=== PATIENT | female | born 1965 | race Caucasian/White ===

== ENCOUNTER 2019-04-07 14:44 | Emergency (ER) | payer OTHER ==
[~2019-04-07] VITALS: Ht 162.6 cm; Wt 80.7 kg
[2019-04-07] MEDS ORDERED: KETOROLAC 30 MG/ML VIAL. ONE (15:08)
--- NOTE | 2019-04-07 15:09 | PHYS DOC ---
Past History Past Medical History: Migraines Past Surgical History: Appendectomy, Hysterectomy Additional Past Surgical Histo: Bilateral knee Smoking: Non-smoker Alcohol Use: Occasionally Drug Use: None Adult General Chief Complaint Chief Complaint: ABDOMINAL PAIN HPI HPI Patient is a 54-year-old female who presents with abdominal pain. Patient endorses left lower quadrant abdominal pain since Saturday night she describes as sharp, constant, radiates to the back. Associated symptoms: nausea. Patient denies fever, chills, dysuria, hematuria, vomiting, or diarrhea. Aggravating factors: Worse with walking, bearing down, the deep inspirations. Patient states that she had a similar pain last year, suspected kidney infection, but tests were normal and pain resolved after a few weeks. Patient reports that her last colonoscopy was "normal". Review of Systems Review of Systems Constitutional: Denies fever or chills Eyes: Denies redness or eye pain HENT: Denies nasal congestion or sore throat Respiratory: Denies cough or shortness of breath Cardiovascular: Denies chest pain or palpitations GI: Reports left lower quadrant abdominal pain and nausea; denies vomiting : Denies dysuria or hematuria Musculoskeletal: Reports left lower back pain. denies midline tenderness. Integument: Denies rash or skin lesions Neurologic: Denies headache, focal weakness or sensory changes Complete systems were reviewed and found to be within normal limits, except as documented in this note. Allergies Allergies Allergies Coded Allergies Type Severity Reaction Last Updated Verified acetaminophen Allergy Unknown 04/07/19 Yes ampicillin Allergy Unknown Rash 04/07/19 Yes propoxyphene Allergy Unknown 04/07/19 Yes Physical Exam Physical Exam Constitutional: Well developed, well nourished, uncomfortable, non-toxic appearance HENT: Normocephalic, atraumatic, oropharynx moist Eyes: Conjunctiva normal, no discharge Neck: Normal range of motion, no tenderness, supple Cardiovascular: Heart rate normal, regular rhythm Lungs & Thorax: Bilateral breath sounds clear to auscultation, no wheezing Abdomen: Soft, left lower quadrant and moderately tender to palpation, guarding noted, negative Elizondo's, negative McBurney's. Skin: Warm, dry, no erythema, no rash Back: No tenderness, mild left CVA tenderness to palpation. Extremities: No tenderness, ROM intact, no edema Neurologic: Alert and oriented X 3, no focal deficits noted Psychologic: Affect normal, judgement normal EKG EKG [] Radiology/Procedures Radiology/Procedures PROCEDURE: CT ABDOMEN PELVIS WO CONTRAST Study: CT abdomen and pelvis without contrast Indication: Left flank pain and left lower quadrant pain. Comparison: None. Technique: Helical CT imaging performed of the abdomen and pelvis without the use of intravenous contrast. Sagittal and coronal reformats were obtained. One or more of the following individualized dose reduction techniques were utilized for this examination: 1. Automated exposure control 2. Adjustment of the mA and/or kV according to patient size 3. Use of iterative reconstruction technique. Findings: Apparent smooth nodules at the right lung base, images 10 and 12 series 2, are fat density and benign. Tiny focus of low attenuation at the periphery of the lower right hepatic lobe on image 49 series 2 is not suspicious and could represent a cyst or hemangioma. Unremarkable gallbladder, pancreas, spleen and adrenal glands. Unremarkable kidneys. No hydroureteronephrosis. Unremarkable urinary bladder. The uterus is absent. No adnexal mass. Colonic diverticulosis involving the transverse colon through the sigmoid colon complicated by sigmoid diverticulitis. Inflammatory changes mainly along the left pelvic sidewall and a small amount of complex fluid within the deep pelvis but without an abscess or uncontained perforation. Nonobstructed small bowel. Mild areas of reactive small bowel wall thickening in the setting of diverticulitis. Unremarkable stomach. No acute osseous abnormality. Relatively mild scattered degenerative changes. Impression: Colonic diverticulosis complicated by sigmoid diverticulitis. Inflammatory changes and a small amount of complex free fluid centered along the left pelvic sidewall and into the deep pelvis but without an abscess or evidence for an uncontained perforation. No bowel obstruction. Electronically signed by: TYLER ASH MD (04/07/2019 3:42 PM) [facility] Course & Med Decision Making Course & Med Decision Making Pertinent Labs and Imaging studies reviewed. (See chart for details) Patient presents with left lower quadrant pain that radiates back and nausea since Saturday. She denies changes in bowel or bladder habits, but has a history of multiple abdominal surgeries. Symptomatic treatment provided. IVF hydration given. Labs obtained and posted to chart. CT Abd/pelvis remarkable for colonic diverticulosis complicated by sigmoid diverticulitis, and area of complex free fluid along pelvic wall. Will start on Flagyl and Rocephin. Discussed with Dr. Boston (hospitalist) regarding case including labs and imaging studies. Agreed for admission but requests transfer to [facility] due to possible need for interventional radiology and/or general surgery. 1830: Patient still endorses abdominal pain, will give fentanyl for pain. Discussed findings and plan with patient and family, who acknowledge understanding and agreement. Dragon Disclaimer Dragon Disclaimer This electronic medical record was generated, in whole or in part, using a voice recognition dictation system. Departure Departure: Impression: Primary Impression: Diverticulitis of intestine with perforation without abscess Disposition: 05 TRANSFER OTHER ([facility]- Dr. Boston accepting) Condition: STABLE Referrals: ROCKY KNAPP DO (PCP) Problem Qualifiers Primary Impression: Diverticulitis of intestine with perforation without abscess Diverticulitis site: large intestine Diverticulitis bleeding: without bleeding Qualified Codes: K57.20 - Diverticulitis of large intestine with perforation and abscess without bleeding NASEEM SAENZ DO Apr 07, 2019 15:09
[2019-04-07] MEDS ORDERED: METOCLOPRAMIDE HCL 10 MG/2 ML VIAL. IVP ONE (15:15)
[2019-04-07] MEDS ORDERED: KETOROLAC 15 MG/ML VIAL. IVP ONE (15:15)
[2019-04-07] MEDS ORDERED: IV NORMAL SALINE 1,000ML 1,000 ML IV ONE (15:15)
[2019-04-07 15:41] LABS: BASO # 0.1 x10^3/uL (0.0-0.2); BASO % 1 % (0-3); EOS # 0.1 x10^3/uL (0.0-0.7); EOS % 1 % (0-3); HEMOGLOBIN 14.7 g/dL (12.0-15.5); LYMPH # 1.4 x10^3/uL (1.0-4.8); LYMPH % 14 % (24-48); MEAN CORPUSCULAR HEMOGLOBIN 32 pg (25-35); MEAN CORPUSCULAR HGB CONC 33 g/dL (31-37); MEAN CORPUSCULAR VOLUME 95 fL (79-100); MONO # 0.7 x10^3/uL (0.0-1.1); MONO % 7 % (0-9); NEUT # 7.8 x10^3uL (1.8-7.7); NEUT % 77 % (31-73); PLATELET COUNT 224 x10^3/uL (140-400); RED BLOOD COUNT 4.66 x10^6/uL (3.50-5.40); RED CELL DISTRIBUTION WIDTH 13.7 % (11.5-14.5); WHITE BLOOD COUNT 10.1 x10^3/uL (4.0-11.0)
--- NOTE | 2019-04-07 15:45 | RAD ---
Study: CT abdomen and pelvis without contrast Indication: Left flank pain and left lower quadrant pain. Comparison: None. Technique: Helical CT imaging performed of the abdomen and pelvis without the use of intravenous contrast. Sagittal and coronal reformats were obtained. One or more of the following individualized dose reduction techniques were utilized for this examination: 1. Automated exposure control 2. Adjustment of the mA and/or kV according to patient size 3. Use of iterative reconstruction technique. Findings: Apparent smooth nodules at the right lung base, images 10 and 12 series 2, are fat density and benign. Tiny focus of low attenuation at the periphery of the lower right hepatic lobe on image 49 series 2 is not suspicious and could represent a cyst or hemangioma. Unremarkable gallbladder, pancreas, spleen and adrenal glands. Unremarkable kidneys. No hydroureteronephrosis. Unremarkable urinary bladder. The uterus is absent. No adnexal mass. Colonic diverticulosis involving the transverse colon through the sigmoid colon complicated by sigmoid diverticulitis. Inflammatory changes mainly along the left pelvic sidewall and a small amount of complex fluid within the deep pelvis but without an abscess or uncontained perforation. Nonobstructed small bowel. Mild areas of reactive small bowel wall thickening in the setting of diverticulitis. Unremarkable stomach. No acute osseous abnormality. Relatively mild scattered degenerative changes. Impression: Colonic diverticulosis complicated by sigmoid diverticulitis. Inflammatory changes and a small amount of complex free fluid centered along the left pelvic sidewall and into the deep pelvis but without an abscess or evidence for an uncontained perforation. No bowel obstruction. Electronically signed by: TYLER ASH MD (04/07/2019 3:42 PM) [facility]
[2019-04-07 15:52] LABS: CALCIUM 8.8 mg/dL (8.5-10.1); CREATININE 0.6 mg/dL (0.6-1.0); POTASSIUM 3.6 mmol/L (3.5-5.1)
[2019-04-07] MEDS ORDERED: IV NORMAL SALINE 50ML 50 ML ONE (15:57)
[2019-04-07] MEDS ORDERED: cefTRIAXone SODIUM 1 GM VIAL ONE (15:57)
[2019-04-07 16:16] LABS: ALBUMIN/GLOBULIN RATIO 1.1 (1.0-1.7); MAGNESIUM 2.4 mg/dL (1.8-2.4); TOTAL BILIRUBIN 0.3 mg/dL (0.2-1.0); TOTAL PROTEIN 7.8 g/dL (6.4-8.2)
[2019-04-07 18:20] LABS: COLOR,URINE STRAW
[2019-04-07 18:21] LABS: BACTERIA,URINE 0 /HPF (0-FEW); BILIRUBIN,URINE NEG (NEG); CLARITY,URINE CLEAR; GLUCOSE,URINE NEG (NEG); NITRITE,URINE NEG (NEG); RBC,URINE 0 /HPF (0-2); SQUAMOUS EPITHELIAL CELL,UR OCC /LPF; UROBILINOGEN,URINE 0.2 mg/dL (0.2 mg/dL); WBC,URINE OCC /HPF (0-4)
[2019-04-07 21:55] VITALS: BP 155/86
== END 2019-04-07 23:39 | disposition short-term general hospital (02) ==
LOC: ER 14:54
DX: K57.20 Diverticulitis of large intestine with perforation and abscess without bleeding (principal); G43.909 Migraine, unspecified, not intractable, without status migrainosus; Z90.89 Acquired absence of other organs; Z90.710 Acquired absence of both cervix and uterus; Z88.6 Allergy status to analgesic agent; Z88.0 Allergy status to penicillin; Z88.8 Allergy status to other drugs, medicaments and biological substances
CPT/HCPCS: 36415; 74176; 80053; 81001; 83690; 83735; 85025; 96365; 96367; 96375; 96376; 99285; J0696; J1885; J2765; J3010; J3490; J7030

== ENCOUNTER → 2020-07-22 | Outpatient (CLI) | payer OTHER ==
--- NOTE | 2020-07-22 08:56 | RAD ---
Exam Date: 07/22/2020 8:28 AM XR EXAM OF ANKLE_RIGHT 3VIEWS, XR RT TIBIA+FIBULA , XR FOOT_RIGHT 3 VIEWS Indication: Reason: S/P FALL, PAIN / Spl. Instructions: / History: FINDINGS/ IMPRESSION: There is soft tissue swelling overlying the lateral malleolus. Ankle mortise is intact. There is a no ndisplaced acute longitudinal fracture through the medial aspect of the distal epiphysis of the fifth proximal phalanx with extension to the PIP joint. Soft tissue swelling of the fifth digit is noted. Mild degenerative changes are noted at the first MTP joint. Joint spaces are otherwise maintained. Electronically signed by: Roosevelt Cazares MD (07/22/2020 8:53 AM) [id number]
== END ==
LOC: RAD 08:16
DX: M19.071 Primary osteoarthritis, right ankle and foot (principal); M79.89 Other specified soft tissue disorders
CPT/HCPCS: 73590; 73610; 73630

== ENCOUNTER 2020-09-26 16:17 | Emergency (ER) | payer OTHER ==
[~2020-09-26] VITALS: Ht 162.6 cm; Wt 80.7 kg
[2020-09-26 17:36] LABS: BASO % 0 % (0-3); EOS % 0 % (0-3); HEMATOCRIT 39.8 % (36.0-47.0); HEMOGLOBIN 13.2 g/dL (12.0-15.5); LYMPH # 1.2 x10^3/uL (1.0-4.8); LYMPH % 11 % (24-48); MEAN CORPUSCULAR HEMOGLOBIN 29 pg (25-35); MEAN CORPUSCULAR HGB CONC 33 g/dL (31-37); MEAN CORPUSCULAR VOLUME 87 fL (79-100); MONO # 0.8 x10^3/uL (0.0-1.1); MONO % 7 % (0-9); NEUT # 8.7 x10^3uL (1.8-7.7); NEUT % 81 % (31-73); PLATELET COUNT 233 x10^3/uL (140-400); RED CELL DISTRIBUTION WIDTH 22.7 % (11.5-14.5); WHITE BLOOD COUNT 10.8 x10^3/uL (4.0-11.0)
[2020-09-26 17:46] LABS: BILIRUBIN,URINE NEG (NEG); CLARITY,URINE CLEAR; COLOR,URINE YELLOW; GLUCOSE,URINE NEG (NEG); NITRITE,URINE NEG (NEG); UROBILINOGEN,URINE 0.2 mg/dL (0.2 mg/dL)
[2020-09-26 17:48] LABS: BACTERIA,URINE FEW /HPF (0-FEW); SQUAMOUS EPITHELIAL CELL,UR FEW /LPF; WBC,URINE 0 /HPF (0-4)
[2020-09-26 18:02] LABS: CALCIUM 9.2 mg/dL (8.5-10.1); CREATININE 0.9 mg/dL (0.6-1.0); GFR 65.5
--- NOTE | 2020-09-26 18:02 | RAD ---
Exam: CT abdomen/pelvis without intravenous contrast Indication: Umbilical pain Comparison: CT abdomen and pelvis 04/07/2019 Technique: Helical CT imaging performed of the abdomen and pelvis without the use of intravenous cont rast. Sagittal and coronal reformats were obtained. One or more of the following individualized dose reduction techniques were utilized for this examinat ion: 1. Automated exposure control 2. Adjustment of the mA and/or kV according to patient size 3. Use of iterative reconstruction technique. Findings: Inherently limited evaluation without intravenous contrast. Lower chest: The lung bases are clear. The heart is normal in size. Liver: Normal noncontrast appearance of the liver. Gallbladder/Biliary Tree: Vague hyperdensity layering in the gallbladder may reflect sludge. Bile gerson ts are normal. Pancreas: Normal. Spleen: Normal. Adrenal Glands: Normal. Kidneys/Ureters/Bladder: Congenital normal in size. No hydronephrosis. Ureters and bladder are normal . Reproductive Organs: Uterus is surgically absent. No adnexal mass. Stomach, small bowel, and colon: Stomach is normal. No small bowel obstruction. There are surgical ch anges of sigmoidectomy. There are diverticula with associated focal wall thickening and surrounding i nflammation over a short segment in the distal transverse colon. No perforation. Vasculature: Aorta is normal in caliber. Lymph Nodes: No lymphadenopathy. Peritoneum and retroperitoneum: No free fluid or free air. No fluid collection. Bones: No acute osseous abnormality. Impression: 1. Uncomplicated acute diverticulitis in the distal transverse colon. Correlate with colonoscopy af ter treatment to exclude underlying mass. 2. Surgical changes of sigmoidectomy. 3. Possible sludge in the gallbladder. Electronically signed by: Fátima Ordonez MD (09/26/2020 5:59 PM) [id number]
[2020-09-26 18:07] LABS: ALBUMIN 4.4 g/dL (3.4-5.0); ALBUMIN/GLOBULIN RATIO 1.3 (1.0-1.7); TOTAL BILIRUBIN 0.4 mg/dL (0.2-1.0); TOTAL PROTEIN 7.9 g/dL (6.4-8.2)
[2020-09-26 18:29] LABS: ANISOCYTOSIS SLIGHT; PLT ESTIMATE ADEQUATE (ADEQUATE)
[2020-09-26] MEDS ORDERED: MORPHINE SULFATE 4 MG/ML DISP.SYRIN. IV ONE ×2 (19:30→20:00)
[2020-09-26] MEDS ORDERED: ONDANSETRON PF 4 MG/2 ML VIAL. ONE (19:37)
--- NOTE | 2020-09-26 19:40 | PHYS DOC ---
Past History Past Medical History: Migraines (AVELINO MENJIVAR APRN) Past Surgical History: Appendectomy, Hysterectomy Additional Past Surgical Histo: Bilateral knee (AVELINO MENJIVAR APRN) Smoking: Non-smoker Alcohol Use: Occasionally Drug Use: None (AVELINO MENJIVAR APRN) General Adult EDM: Chief Complaint: ABDOMINAL PAIN HPI: HPI: Patient is a 55-year-old female who presents with right upper quadrant pain that radiates to her back. Denies nausea, vomiting, diarrhea. Afebrile. Patient also reports some left lower quadrant discomfort. Patient has a history of diverticulitis. Patient has a history of colon resection, diverticulitis, migra tri. (AVELINO MENJIVAR APRN) Review of Systems: Review of Systems: Constitutional: Denies fever or chills Eyes: Denies change in visual acuity HENT: Denies nasal congestion or sore throat Respiratory: Denies cough or shortness of breath Cardiovascular: Denies chest pain or edema GI: Reports right upper quadrant abdominal pain and left lower quadrant pain.denies nausea, vomiting, bloody stools or diarrhea : Denies dysuria Musculoskeletal: Denies back pain or joint pain Integument: Denies rash Neurologic: Denies headache, focal weakness or sensory changes Endocrine: Denies polyuria or polydipsia Lymphatic: Denies swollen glands Psychiatric: Denies depression or anxiety (AVELINO MENJIVAR APRN) Current Medications: Current Meds: Current Medications Medications (Trade) Dose Ordered Sig/Dwayne Start Time Stop Time Status Last Admin Dose Admin Morphine Sulfate (Morphine 4mg Syringe) 4 mg 1X ONCE 09/26/20 19:30 09/26/20 19:31 DC (AVELINO MENJIVAR APRN) Allergies: Allergies: Allergies Coded Allergies Type Severity Reaction Last Updated Verified acetaminophen Allergy Unknown 04/07/19 Yes ampicillin Allergy Unknown Rash 04/07/19 Yes propoxyphene Allergy Unknown 04/07/19 Yes (AVELINO MENJIVAR APRN) Physical Exam: PE: Constitutional: Well developed, well nourished, no acute distress, non-toxic appearance. [] HENT: Normocephalic, atraumatic, bilateral external ears normal, oropharynx moist, no oral exudates, nose normal. [] Eyes: PERRLA, EOMI, conjunctiva normal, no discharge. [] Neck: Normal range of motion, no tenderness, supple, no stridor. [] Cardiovascular:Heart rate regular rhythm, no murmur [] Lungs & Thorax: Bilateral breath sounds clear to auscultation [] Abdomen: Bowel sounds normal, soft, no tenderness, no masses, no pulsatile eduardo s. [] Skin: Warm, dry, no erythema, no rash. [] Back: No tenderness, no CVA tenderness. [] Extremities: No tenderness, no cyanosis, no clubbing, ROM intact, no edema. [] Neurologic: Alert and oriented X 3, normal motor function, normal sensory function, no focal deficits noted. [] Psychologic: Affect normal, judgement normal, mood normal. [] (AVELINO MENJIVAR APRN) Current Patient Data: Labs: Laboratory Tests Test 09/26/20 17:15 09/26/20 17:27 White Blood Count 10.8 x10^3/uL (4.0-11.0) Red Blood Count 4.60 x10^6/uL (3.50-5.40) Hemoglobin 13.2 g/dL (12.0-15.5) Hematocrit 39.8 % (36.0-47.0) Mean Corpuscular Volume 87 fL (79-100) Mean Corpuscular Hemoglobin 29 pg (25-35) Mean Corpuscular Hemoglobin Concent 33 g/dL (31-37) Red Cell Distribution Width 22.7 % (11.5-14.5) H Platelet Count 233 x10^3/uL (140-400) Neutrophils (%) (Auto) 81 % (31-73) H Lymphocytes (%) (Auto) 11 % (24-48) L Monocytes (%) (Auto) 7 % (0-9) Eosinophils (%) (Auto) 0 % (0-3) Basophils (%) (Auto) 0 % (0-3) Neutrophils # (Auto) 8.7 x10^3uL (1.8-7.7) H Lymphocytes # (Auto) 1.2 x10^3/uL (1.0-4.8) Monocytes # (Auto) 0.8 x10^3/uL (0.0-1.1) Eosinophils # (Auto) 0.0 x10^3/uL (0.0-0.7) Basophils # (Auto) 0.0 x10^3/uL (0.0-0.2) Platelet Estimate Adequate (ADEQUATE) Anisocytosis Slight Urine Collection Type Unknown Urine Color Yellow Urine Clarity Clear Urine pH 5.5 Urine Specific [place] 1.020 Urine Protein Neg (NEG-TRACE) Urine Glucose (UA) Neg mg/dL (NEG) Urine Ketones (Stick) Trace mg/dL (NEG) Urine Blood Small (NEG) Urine Nitrite Neg (NEG) Urine Bilirubin Neg (NEG) Urine Urobilinogen Dipstick 0.2 mg/dL (0.2 mg/dL) Urine Leukocyte Esterase Neg (NEG) Urine RBC 3-5 /HPF (0-2) Urine WBC 0 /HPF (0-4) Urine Squamous Epithelial Cells Few /LPF Urine Bacteria Few /HPF (0-FEW) Sodium Level 142 mmol/L (136-145) Potassium Level 4.0 mmol/L (3.5-5.1) Chloride Level 105 mmol/L (98-107) Carbon Dioxide Level 26 mmol/L (21-32) Anion Gap 11 (6-14) Blood Urea Nitrogen 10 mg/dL (7-20) Creatinine 0.9 mg/dL (0.6-1.0) Estimated GFR (Cockcroft-Gault) 65.5 BUN/Creatinine Ratio 11 (6-20) Glucose Level 98 mg/dL (70-99) Calcium Level 9.2 mg/dL (8.5-10.1) Total Bilirubin 0.4 mg/dL (0.2-1.0) Aspartate Amino Transferase (AST) 27 U/L (15-37) Alanine Aminotransferase (ALT) 35 U/L (14-59) Alkaline Phosphatase 77 U/L (46-116) Total Protein 7.9 g/dL (6.4-8.2) Albumin 4.4 g/dL (3.4-5.0) Albumin/Globulin Ratio 1.3 (1.0-1.7) Lipase 75 U/L (73-393) POC Urine HCG, Qualitative hcg negative (Negative) Vital Signs: Vital Signs Date Time Temp Pulse Resp B/P (MAP) Pulse Ox O2 Delivery O2 Flow Rate FiO2 09/26/20 16:17 98.2 96 20 140/101 99 Room Air (AVELINO MENJIVAR APRN) EKG: EKG: Sinus rhythm. Heart rate 92 bpm. [] (AVELINO MENJIVAR APRN) Radiology/Procedures: Radiology/Procedures: [] (AVELINO MENJIVAR APRN) Heart Score: C/O Chest Pain: No Risk Factors: Risk Factors: DM, Current or recent (<one month) smoker, HTN, HLP, family history of CAD, obesity. Risk Scores: Score 0 - 3: 2.5% MACE over next 6 weeks - Discharge Home Score 4 - 6: 20.3% MACE over next 6 weeks - Admit for Clinical Observation Score 7 - 10: 72.7% MACE over next 6 weeks - Early Invasive Strategies (AVELINO MENJIVAR APRN) Course & Med Decision Making: Course & Med Decision Making Pertinent Labs and Imaging studies reviewed. (See chart for details) [] 55-year-old female presents with right upper quadrant pain that radiates to her back. Patient also is reporting left lower quadrant pain. Patient has a history of diverticulitis and has had to have a colon resection. All of the labs were unremarkable. Patient is afebrile. Patient given morphine for pain. CT also showed some sludge in her gallbladder. CT also showed uncomplicated diverticulitis. Patient given Flagyl and Cipro to take at home. Patient given dose in the emergency room. Instructed patient to follow-up with her PCP tomorrow for further testing and management. Patient sent home with hydrocodone for pain control and Zofran. Patient states that she will follow-up with her PCP tomorrow. Patient is hemodynamically stable. Patient is appreciative and okay with discharge plan. (AVELINO MENJIVAR APRN) Course & Med Decision Making Did not see or evaluate patient. Agree with DIRECTOR OF GROUP COUNSELING PROGRAM's work-up and disposition per note. (ELLYN JASMINE MD) Dragon Disclaimer: Dragon Disclaimer: This electronic medical record was generated, in whole or in part, using a voice recognition dictation system. (AVELINO MENJIVAR APRN) Departure Departure: Impression: Primary Impression: Diverticulitis Disposition: HOME / SELF CARE / HOMELESS Condition: STABLE Referrals: ROCKY KNAPP DO (PCP) Patient Instructions: Diverticulitis, [id number] Additional Instructions: You are seen in the emergency room for right upper quadrant and left lower quadrant abdominal pain. You are given morphine and Zofran for pain and nausea. I am sending you home with a prescription for hydrocodone. Can also take ibuprofen and Tylenol at home for discomfort. Please call your PCP in the morning and schedule a follow-up appointment. All of your other labs were unr emarkable. Please return to the emergency room with worsening symptoms or concerns. EMERGENCY DEPARTMENT GENERAL DISCHARGE INSTRUCTIONS Thank you for coming to [facility] (ED) today and trusting us with you care. We trust that you had a positivie experience in our Emergency Department. If you wish to speak to the department management, you may call the director at [phone]. YOUR FOLLOW UP INSTRUCTIONS ARE FOLLOWS: 1. Do you have a private Doctor? If you do not have a private doctor, please ask for a resource list of physicians or clinics that may be able to assist you with follow up care. 2. The Emergency Physician has interpreted your x-rays. The X-Ray specialist will also review them. If there is a change in the findings, you will be notified in 48 hours when at all possible. 3. A lab test or culture has been done, your results will be reviewed and you will be notified if you need a change in treatment. ADDITIONAL INSTRUCTIONS AND INFORMATION: 1. Your care today has been supervised by a physician who is specially trained in emergency care. Many problems require more than one evaluation for a complete diagnosis and treatment. We recommend that you schedule your follow up appointment as recommended to ensure complete treatment of you illness or injury. If you are unable to obtain follow up care and continue to have a problem, or if your condition worsens, we recommend that you return to the ED. 2. We are not able to safely determine your condition over the phone nor are we able to give sound medical advice over the phone. For these safety reasons, if you call for medical advice we will ask you to come to the ED for further evaluation. 3. If you have any questions regarding these discharge instructions please call the ED at [phone]. SAFETY INFORMATION: In the interest of safety, wellness, and injury prevention; we encourage you to wear your sealbelt, if you smoke; quite smoking, and we encourage family to use a protective helmet for bicycling and other sporting events that present an increased risk for head injury. IF YOUR SYMPTOMS WORSEN OR NEW SYMPTOMS DEVELOP, OR YOU HAVE CONCERNS ABOUT YOUR CONDITION; OR IF YOUR CONDITION WORSENS WHILE YOU ARE WAITING FOR YOUR FOLLOW UP APPOINTMENT; EITHER CONTACT YOUR PRIMARY CARE DOCTOR, THE PHYSICIAN WHOSE NAME AND NUMBER YOU WERE GIVEN, OR RETURN TO THE ED IMMEDIATELY. Scripts Metronidazole (FLAGYL) 500 Mg Tablet 1 TAB PO BID for DIVERTIULITIS for 10 Days, #19 TAB Prov: AVELINO MENJIVAR APRN 09/26/20 Ciprofloxacin Hcl (CIPRO) 500 Mg Tablet 1 TAB PO BID for DIVERTICULITIS for 7 Days, #14 TAB 0 Refills Prov: AVELINO MENJIVAR APRN 09/26/20 Amoxicillin/Potassium Clav (AUGMENTIN 875-125 TABLET) 1 Each Tablet 1 TAB PO BID for DIVERTICULITIS for 10 Days, #20 TAB 0 Refills Prov: AVELINO MENJIVAR APRN 09/26/20 Ondansetron Hcl (ZOFRAN) 4 Mg Tablet 4 MG PO TID PRN PRN for NAUSEA, #9 TAB Prov: AVELINO MENJIVAR APRN 09/26/20 Hydrocodone Bit/Acetaminophen (HYDROCODONE-APAP 5-325 ) 1 Each Tablet 1 TAB PO PRN Q6HRS PRN for PAIN for 3 Days, #12 TAB 0 Refills Prov: AVELINO MENJIVAR APRN 09/26/20 AVELINO MENJIVAR APRN Sep 26, 2020 19:40 ELLYN JASMINE MD Sep 26, 2020 21:59
[2020-09-26] MEDS ORDERED: ONDA4TAB7 PO (19:43)
[2020-09-26] MEDS ORDERED: AMOX1TAB61 PO (19:43)
[2020-09-26] MEDS ORDERED: HYDR-2155 PO (19:43)
[2020-09-26] MEDS ORDERED: HYDROcodone/APAP 5/325MG 1 TAB TABLET PO ONE (19:45)
[2020-09-26] MEDS ORDERED: AMOXICILLIN/K CLAV 875/125MG TABLET. PO ONE (19:45)
[2020-09-26] MEDS ORDERED: ONDANSETRON ODT 4 MG TAB.RAPDIS PO ONE (19:45)
[2020-09-26] MEDS ORDERED: CIPR500T94 PO (19:51)
[2020-09-26] MEDS ORDERED: METR500T PO (19:51)
[2020-09-26] MEDS ORDERED: metroNIDAZOLE 500 MG TABLET PO ONE (20:00)
[2020-09-26] MEDS ORDERED: CIPROFLOXACIN HCL 500 MG TABLET PO ONE (20:00)
[2020-09-26 20:10] VITALS: BP 129/87
--- NOTE | 2020-09-27 06:33 | EKG ---
[address] [address] Test Date: 2020-09-26 Test Time: 17:10:24 Pat Name: ARNOLDO THRASHER Department: Room: Gender: F School Cleaner: JOSLYN : 1965 Requested By: AVELINO MENJIVAR Order Number: [id number] Reading MD: Abraham Vail Measurements Intervals [place] Rate: 92 P: 62 GA: 166 QRS: 78 QRSD: 90 T: 13 QT: 348 QTc: 435 Interpretive Statements SINUS RHYTHM NORMAL ECG RI6.02 No previous ECG available for comparison Electronically Signed On 09-28-2020 11:56:30 CDT by Abraham Vail
== END 2020-09-26 20:15 | disposition home or self-care (01) ==
LOC: ER 16:17
DX: K57.32 Diverticulitis of large intestine without perforation or abscess without bleeding (principal); G43.909 Migraine, unspecified, not intractable, without status migrainosus; Z90.89 Acquired absence of other organs; Z90.710 Acquired absence of both cervix and uterus; Z88.1 Allergy status to other antibiotic agents; Z88.8 Allergy status to other drugs, medicaments and biological substances
CPT/HCPCS: 36415; 74176; 80053; 81001; 81025; 83690; 85025; 93005; 96374; 99285; J2270; Q0162

== ENCOUNTER 2020-12-07 17:54 | Emergency (ER) | payer OTHER ==
[~2020-12-07] VITALS: Ht 162.6 cm; Wt 80.7 kg
[~2020-12-07 17:54] MED LIST: AMOX1TAB61 PO; CIPR500T94 PO; HYDR-2155 PO; METR500T PO; ONDA4TAB7 PO
[2020-12-07] MEDS ORDERED: IV NORMAL SALINE 1,000ML 1,000 ML IV ONE (18:15)
[2020-12-07] MEDS ORDERED: ONDANSETRON PF 4 MG/2 ML VIAL. IVP ONE (18:15)
--- NOTE | 2020-12-07 18:21 | PHYS DOC ---
Past History Past Medical History: Migraines Past Surgical History: Appendectomy, Hysterectomy Additional Past Surgical Histo: Bilateral knee Smoking: Non-smoker Alcohol Use: Rarely Drug Use: None General Adult EDM: Chief Complaint: ABDOMINAL PAIN HPI: HPI: 55-year-old female presents with left lower quadrant abdominal pain. This pain started last night. She describes it as a sharp cramping sensation in her left lower quadrant and suprapubic area. She has a long history of diverticulitis including partial colon resection within the last year. She had a colonoscopy a couple weeks ago and has a follow-up appointment to discuss the results next Saturday. The pain is slightly different this time and that it is lower than usual. It is more in her pelvis than her previous episodes. She has waited longer with pain in the past and had to be in the hospital longer so she does not want to wait this time. She denies fever or chills. Her last diverticulitis episode was September 26, 2020. Review of Systems: Review of Systems: Constitutional: Denies fever or chills Eyes: Denies change in visual acuity HENT: Denies nasal congestion or sore throat Respiratory: Denies cough or shortness of breath Cardiovascular: Denies chest pain or edema GI: Left lower quadrant abdominal pain. Denies nausea, vomiting, bloody stools or diarrhea : Denies dysuria Musculoskeletal: Denies back pain or joint pain Integument: Denies rash Neurologic: Denies headache, focal weakness or sensory changes Endocrine: Denies polyuria or polydipsia Lymphatic: Denies swollen glands Psychiatric: Denies depression or anxiety Current Medications: Current Meds: Current Medications Medications (Trade) Dose Ordered Sig/Dwayne Start Time Stop Time Status Last Admin Dose Admin Ondansetron HCl (Zofran) 4 mg 1X ONCE 12/07/20 18:15 12/07/20 18:16 DC Sodium Chloride 1,000 ml @ 1,000 mls/hr 1X ONCE 12/07/20 18:15 12/07/20 19:14 Allergies: Allergies: Allergies Coded Allergies Type Severity Reaction Last Updated Verified acetaminophen Allergy Unknown 04/07/19 Yes ampicillin Allergy Unknown Rash 04/07/19 Yes propoxyphene Allergy Unknown 04/07/19 Yes Physical Exam: PE: Constitutional: Well developed, well nourished, no acute distress, non-toxic appearance. [] HENT: Normocephalic, atraumatic, bilateral external ears normal, oropharynx moist, no oral exudates, nose normal. [] Eyes: PERRLA, EOMI, conjunctiva normal, no discharge. [] Neck: Normal range of motion, no tenderness, supple, no stridor. [] Cardiovascular:Heart rate regular rhythm, no murmur [] Lungs & Thorax: Bilateral breath sounds clear to auscultation [] Abdomen: Bowel sounds normal, soft, left lower quadrant and suprapubic tend erness with mild guarding, no masses, no pulsatile masses. [] Skin: Warm, dry, no erythema, no rash. [] Back: No tenderness, no CVA tenderness. [] Extremities: No tenderness, no cyanosis, no clubbing, ROM intact, no edema. [] Neurologic: Alert and oriented X 3, normal motor function, normal sensory function, no focal deficits noted. [] Psychologic: Affect normal, judgement normal, mood normal. [] Current Patient Data: Vital Signs: Vital Signs Date Time Temp Pulse Resp B/P (MAP) Pulse Ox O2 Delivery O2 Flow Rate FiO2 12/07/20 18:03 98.4 82 16 159/100 (119) 98 Room Air EKG: EKG: [] Radiology/Procedures: Radiology/Procedures: [] Impressions: Examination: CT of the abdomen pelvis with IV contrast HISTORY: History of left lower quadrant abdominal pain COMPARISON: 09/26/2020 TECHNIQUE: Axial CT images of the abdomen pelvis were performed with IV contrast. Coronal and sagittal reformats performed. Exposure: One or more of the following individualized dose reduction techniques were utilized for this examination: 1. Automated exposure control 2. Adjustment of the mA and/or kV according to patient size 3. Use of iterative reconstruction technique FINDINGS: The bibasilar lungs are clear. No evidence of free air identified in the abdomen. Tiny subcentimeter cyst identified in the right lobe of the liver. The spleen, adrenals grossly appears unremarkable. The gallbladder is mildly distended.The stomach is mildly distended. The visualized pancreas grossly appears unremarkable. Multiple colon diverticulosis. The bilateral kidneys enhance symmetrically. The urinary bladder is mildly distended. No evidence of lytic bony destructive lesion. IMPRESSION: 1. No acute intra-abdominal findings. 2. Multiple colon diverticulosis. Electronically signed by: Sam Heaton MD (12/07/2020 7:07 PM) [id number] DICTATED AND SIGNED BY: SAM HEATON MD DATE: 12/07/201899 CC: ROCKY KNAPP DO; STANLEY HIRSCH DO ~MTH0 0 Heart Score: C/O Chest Pain: N/A Risk Factors: Risk Factors: DM, Current or recent (<one month) smoker, HTN, HLP, family history of CAD, obesity. Risk Scores: Score 0 - 3: 2.5% MACE over next 6 weeks - Discharge Home Score 4 - 6: 20.3% MACE over next 6 weeks - Admit for Clinical Observation Score 7 - 10: 72.7% MACE over next 6 weeks - Early Invasive Strategies Course & Med Decision Making: Course & Med Decision Making Pertinent Labs and Imaging studies reviewed. (See chart for details) The patient CT scan is negative for diverticulitis. Labs are unremarkable. Urinalysis is pending. The patient's urinalysis is negative for infection. Not sure what is causing the patient's pain. She has had complete hysterectomy with oophorectomy so it is not ovarian in nature. I will give her a short prescription of [place] 5/325. It could be early diverticulitis that does not obvious on CT scan at this time. I advised the patient that if her pain does not improve by tomorrow she should follow-up with her PCP or GI doc and consider treatment anyway. She is in agreement with this plan. She is stable for discharge at this time. [] Dragon Disclaimer: Bryan Disclaimer: This electronic medical record was generated, in whole or in part, using a voice recognition dictation system. Departure Departure: Impression: Primary Impression: Left lower quadrant abdominal pain Disposition: HOME / SELF CARE / HOMELESS Condition: STABLE Referrals: ROCKY KNAPP DO (PCP) Patient Instructions: Abdominal Pain, [id number] Scripts Hydrocodone/Acetaminophen (Hydrocodone-Acetamin 5-325 mg) 1 Each Tablet 1 EACH PO Q4-6HRS PRN for PAIN, #10 TAB Prov: STANLEY HIRSCH DO 12/07/20 STANLEY HISRCH DO Dec 07, 2020 18:20
[2020-12-07] MEDS ORDERED: IOHEXOL 300 MG/ML 75 ML VIAL. IV ONE (18:30)
[2020-12-07 19:00] LABS: BASO % 0 % (0-3); EOS # 0.1 x10^3/uL (0.0-0.7); EOS % 1 % (0-3); HEMATOCRIT 38.9 % (36.0-47.0); HEMOGLOBIN 12.9 g/dL (12.0-15.5); LYMPH # 1.7 x10^3/uL (1.0-4.8); LYMPH % 25 % (24-48); MEAN CORPUSCULAR HEMOGLOBIN 31 pg (25-35); MEAN CORPUSCULAR HGB CONC 33 g/dL (31-37); MEAN CORPUSCULAR VOLUME 92 fL (79-100); MONO # 0.5 x10^3/uL (0.0-1.1); MONO % 8 % (0-9); NEUT # 4.3 x10^3uL (1.8-7.7); NEUT % 66 % (31-73); PLATELET COUNT 232 x10^3/uL (140-400); RED BLOOD COUNT 4.21 x10^6/uL (3.50-5.40); RED CELL DISTRIBUTION WIDTH 14.7 % (11.5-14.5); WHITE BLOOD COUNT 6.6 x10^3/uL (4.0-11.0)
[2020-12-07 19:09] VITALS: BP 159/94
[2020-12-07 19:09] LABS: CALCIUM 9.2 mg/dL (8.5-10.1); CREATININE 0.7 mg/dL (0.6-1.0); GFR 87.5
--- NOTE | 2020-12-07 19:10 | RAD ---
Examination: CT of the abdomen pelvis with IV contrast HISTORY: History of left lower quadrant abdominal pain COMPARISON: 09/26/2020 TECHNIQUE: Axial CT images of the abdomen pelvis were performed with IV contrast. Coronal and sagitta l reformats performed. Exposure: One or more of the following individualized dose reduction techniques were utilized for thi s examination: 1. Automated exposure control 2. Adjustment of the mA and/or kV according to patient size 3. Use of iterative reconstruction technique FINDINGS: The bibasilar lungs are clear. No evidence of free air identified in the abdomen. Tiny subcentimeter cyst identified in the right lobe of the liver. The spleen, adrenals grossly appea rs unremarkable. The gallbladder is mildly distended.The stomach is mildly distended. The visualized pancreas grossly appears unremarkable. Multiple colon diverticulosis. The bilateral kidneys enhance s ymmetrically. The urinary bladder is mildly distended. No evidence of lytic bony destructive lesion. IMPRESSION: 1. No acute intra-abdominal findings. 2. Multiple colon diverticulosis. Electronically signed by: Sam Heaton MD (12/07/2020 7:07 PM) [id number]
[2020-12-07 19:15] LABS: ALBUMIN 4.2 g/dL (3.4-5.0); ALBUMIN/GLOBULIN RATIO 1.4 (1.0-1.7); TOTAL BILIRUBIN 0.2 mg/dL (0.2-1.0); TOTAL PROTEIN 7.2 g/dL (6.4-8.2)
[2020-12-07 19:29] LABS: BACTERIA,URINE 0 /HPF (0-FEW); BILIRUBIN,URINE NEG (NEG); CLARITY,URINE CLEAR; COLOR,URINE STRAW; GLUCOSE,URINE NEG (NEG); NITRITE,URINE NEG (NEG); RBC,URINE 0 /HPF (0-2); SQUAMOUS EPITHELIAL CELL,UR FEW /LPF; UROBILINOGEN,URINE 0.2 mg/dL (0.2 mg/dL); WBC,URINE 0 /HPF (0-4)
[2020-12-07] MEDS ORDERED: HYDR-2759 PO (19:44)
[2020-12-07] MEDS ORDERED: HYDROcodone/APAP 7.5/325MG 1 TAB TABLET PO ONE (19:45)
== END 2020-12-07 19:53 | disposition home or self-care (01) ==
LOC: ER 17:54
DX: R10.32 Left lower quadrant pain (principal); G43.909 Migraine, unspecified, not intractable, without status migrainosus; Z90.89 Acquired absence of other organs; Z90.710 Acquired absence of both cervix and uterus; Z88.1 Allergy status to other antibiotic agents; Z88.8 Allergy status to other drugs, medicaments and biological substances
CPT/HCPCS: 36415; 74177; 80053; 81001; 85025; 96361; 96374; 99285; J2405; J7030; Q9967

== ENCOUNTER → 2021-06-08 | Outpatient (CLI) | payer OTHER ==
[~2021-06-08] MED LIST changes: +HYDR-2759 PO
--- NOTE | 2021-06-08 14:48 | RAD ---
EXAM: Abdomen and pelvis CT without intravenous contrast. HISTORY: Right flank pain. Dysuria. TECHNIQUE: Computed tomographic images of the chest were obtained without contrast. Multiplanar refor matting was performed. *One or more of the following individualized dose reduction techniques were utilized for this examina tion: 1. Automated exposure control. 2. Adjustment of the mA and/or kV according to patient size. 3. Use of iterative reconstruction technique. COMPARISON: 12/07/2020. FINDINGS: Evaluation of the lower thorax demonstrates stable fat density nodule along the right basil ar pleura likely due to extrapleural fat. No suspicious nodule is seen. The heart is normal in size. There is slight increased trace anterior pericardial fluid. No hepatic lesion is seen. The gallbladde r, pancreas, stomach and adrenal glands are unremarkable. There is a small splenule adjacent to an ot herwise unremarkable spleen. There is no nephroureterolithiasis. There is no hydronephrosis. There is no suspicious renal lesion. There is no appendicitis. There is no bowel obstruction. There is colonic diverticulosis. There is no diverticulitis. There is a surgical anastomosis involving the sigmoid colon due to prior partial col on resection. The bladder is unremarkable. The uterus is absent. There is no suspicious adnexal lesio n. The aorta is normal in caliber. There is no lymphadenopathy. There is no acute or suspicious osseo us finding. IMPRESSION: 1. No acute abdominal or pelvic finding. Specifically, no evidence of nephroureterolithiasis or hydro nephrosis. 2. Slight increase in nonspecific trace pericardial fluid. Electronically signed by: Radha Tracy MD (06/08/2021 2:46 PM) [id number]
== END ==
LOC: CT 14:14
PROVIDERS: ATTEND Family Medicine
DX: K57.30 Diverticulosis of large intestine without perforation or abscess without bleeding (principal); K63.89 Other specified diseases of intestine; R30.0 Dysuria; Z90.710 Acquired absence of both cervix and uterus
CPT/HCPCS: 74176